=== PATIENT | female | born 1935 | race Caucasian/White ===

== ENCOUNTER 2020-01-31 09:06 | Outpatient (CLI) | payer BC ==
[~2020-01-31] VITALS: Ht 149.9 cm; Wt 45.4 kg
[2020-01-31] MEDS ORDERED: cefOXitin SODIUM 2 GM in D5W 100 ML IV ONE (09:30)
[2020-01-31] MEDS ORDERED: ALVIMOPAN 12 MG CAPSULE PO ONE (09:33)
[2020-01-31 09:49] VITALS: BP_SYST 129
[2020-01-31] MEDS ORDERED: LOSA100T3 PO (10:18)
== END 2020-01-31 17:36 | disposition home or self-care (01) ==
LOC: SLB 09:06 → UNDOADMIN 09:06 → SMU 09:06 → UNDODISIN 10:50 → EDSTATUS 10:50 → SLB 17:36
DX: C18.9 Malignant neoplasm of colon, unspecified (principal)
CPT/HCPCS: 36415; 86886; 86900; 86901; 86920; 87081 ×2; J0694; J7060; J7120

== ENCOUNTER 2020-02-07 05:50 | Inpatient (IN) | payer BC ==
[~2020-02-07] VITALS: Ht 149.9 cm; Wt 44.9 kg
[~2020-02-07 05:50] MED LIST: LOSA100T3 PO
[2020-02-07] MEDS ORDERED: ALVIMOPAN 12 MG CAPSULE PO ONE (06:23)
[2020-02-07 06:32] LABS: BASOPHILS # (AUTO) 0.1 K/uL (0.0-0.2); EOSINOPHILS # (AUTO) 0.1 K/uL (0.0-0.4); EOSINOPHILS % (AUTO) 1.5 % (0.0-4.0); HEMATOCRIT 32.4 % (36-48); HEMOGLOBIN 10.5 g/dL (12.0-16.0); LYMPHOCYTES # (AUTO) 2.1 K/uL (1.0-5.5); LYMPHOCYTES % (AUTO) 22.2 % (20.5-51.5); MEAN CORPUSCULAR HEMOGLOBIN 26 pg (27-31); MEAN CORPUSCULAR HGB CONC 32 % (32-36); MEAN CORPUSCULAR VOLUME 82 fL (79.0-98.0); MONOCYTES # (AUTO) 0.6 K/uL (0.0-1.0); MONOCYTES % (AUTO) 6.1 % (1.7-9.3); NEUTROPHILS # (AUTO) 6.4 K/uL (1.8-7.7); NEUTROPHILS % (AUTO) 69.2 % (40.0-70.0); PLATELET COUNT (AUTO) 327 K/uL (130-430); RED BLOOD CELL COUNT(AUTO) 3.97 MIL/uL (4.2-6.2); RED CELL DISTRIBUTION WIDTH 20.7 % (9.0-15.0); WHITE BLOOD COUNT (AUTO) 9.3 K/uL (4.8-10.8)
[2020-02-07 06:40] LABS: ANION GAP 10 (5-15); CALCIUM 8.3 mg/dL (8.4-11.0); CHLORIDE 104 mmol/L (98-107); GLUCOSE 112 mg/dL (70-99); POTASSIUM 3.9 mmol/L (3.5-5.1); SODIUM SERUM 140 mmol/L (136-145); UREA NITROGEN, BLOOD 15 mg/dL (8-21)
[2020-02-07] MEDS ORDERED: CEFOXITIN 2 GM/DEXTROSE,ISO 50 ML (PREMIX) IV ONE (07:00)
[2020-02-07] MEDS ORDERED: PROPOFOL 200MG/ 20ML VIAL (DIPRIVAN) IV ONE (07:29)
[2020-02-07] MEDS ORDERED: MIDAZOLAM HCL 5 MG/5 ML VIAL IVP ONE (07:29)
[2020-02-07] MEDS ORDERED: NS 1000 ML IV.SOLN IV ONE (07:29)
[2020-02-07] MEDS ORDERED: SEVOFLURANE 15 MIN GAS INH ONE (07:29)
[2020-02-07] MEDS ORDERED: BUPIVACAINE LIPOSOME/PF 266 MG/20 ML VIAL INFIL ONE ×2 (07:29→07:33)
[2020-02-07] MEDS ORDERED: GLYCOPYRROLATE 0.2 MG/ML VIAL IJ ONE (07:29)
[2020-02-07] MEDS ORDERED: PHENYLEPHRINE HCL 10 MG/ML VIAL (NEOSYNEPHRINE) IV ONE (07:29)
[2020-02-07] MEDS ORDERED: fentaNYL CITRATE 250 MCG/5 ML AMP IV ONE (07:29)
[2020-02-07] MEDS ORDERED: LR 500 ML IV.SOLN IV ONE (07:29)
[2020-02-07] MEDS ORDERED: ONDANSETRON HCL 4 MG/2 ML VIAL IVP ONE (07:29)
[2020-02-07] MEDS ORDERED: ROCURONIUM BROMIDE 10 MG/ML (ZEMURON) IV ONE (07:29)
[2020-02-07] MEDS ORDERED: METOPROLOL TARTRATE 5 MG/5 ML VIAL IVP ONE (07:29)
[2020-02-07] MEDS ORDERED: NS IRRIG SOLN 1000 ML IR ONE (07:29)
[2020-02-07] MEDS ORDERED: BUPIVACAINE /PF 0.25% 30 ML VIAL INJ ONE (07:29)
[2020-02-07] MEDS ORDERED: LR 1,000 ML IV ONE (08:21)
[2020-02-07] MEDS ORDERED: HYDROmorphone 1 MG INJ. 1 MG/ML AMPUL IVP PRN (08:30)
[2020-02-07] MEDS ORDERED: ONDANSETRON HCL 4 MG/2 ML VIAL IVP PRN (08:30)
[2020-02-07] MEDS ORDERED: MORPHINE 4 MG/ML INJ. SYRINGE IVP PRN (08:30)
[2020-02-07] MEDS ORDERED: MIDAZOLAM HCL 5 MG/5 ML VIAL IVP PRN (08:30)
[2020-02-07] MEDS ORDERED: HYDROcodone/ACETAMIN 5-325 MG TAB (NORCO/ VICODIN) PO PRN (10:00)
[2020-02-07] MEDS ORDERED: ACETAMINOPHEN 325 MG TABLET PO PRN (10:00)
[2020-02-07 10:31] LABS: HEMATOCRIT 30.3 % (36-48); HEMOGLOBIN 9.4 g/dL (12.0-16.0)
[2020-02-07 10:45] LABS: ANION GAP 9 (5-15); CALCIUM 8.2 mg/dL (8.4-11.0); CHLORIDE 106 mmol/L (98-107); CREATININE 0.66 mg/dL (0.55-1.30); GLUCOSE 164 mg/dL (70-99); POTASSIUM 4.1 mmol/L (3.5-5.1); SODIUM SERUM 139 mmol/L (136-145); UREA NITROGEN, BLOOD 14 mg/dL (8-21)
[2020-02-07] MEDS: HYDROmorphone 1 MG INJ. 1 MG/ML AMPUL IVP PRN ×2 (11:00→11:15)
[2020-02-07] MEDS ORDERED: HYDROmorphone 1 MG INJ. 1 MG/ML AMPUL ONE (11:08)
[2020-02-07 11:25] VITALS: BP_SYST 163
[2020-02-07] MEDS ORDERED: *TPN PER PHARMACY XX PRN (12:15)
[2020-02-07 16:00] VITALS: BP_SYST 153
[2020-02-07] MEDS: D5/0.45 NS 1,000 ML IV SCH ×2 (19:09→19:47)
[2020-02-07 20:09] VITALS: BP_SYST 141
[2020-02-07] MEDS: TPN PERIPHERAL IV SCH ×9 (21:00)
[2020-02-07] MEDS: FAT EMULSIONS 250 ML IV SCH (21:00)
[2020-02-07] MEDS: ALVIMOPAN 12 MG CAPSULE PO SCH (21:00)
[2020-02-07] MEDS: SODIUM CHLORIDE IV SCH ×9 (21:00)
[2020-02-07] MEDS: [UNRECOGNIZED DRUG - OTHER] IV SCH ×9 (21:00)
[2020-02-07] MEDS ORDERED: D5/0.45 NS 1,000 ML IV SCH (21:00)
[2020-02-07] MEDS: SODIUM ACETATE IV SCH ×9 (21:00)
[2020-02-07] MEDS: cefOXitin SODIUM 2 GM in D5W 100 ML IV SCH (23:07)
[2020-02-07] MEDS: FAMOTIDINE PF 20 MG/2 ML VIAL IVP SCH (23:08)
[2020-02-08 01:02] VITALS: BP_SYST 162
[2020-02-08] MEDS: HYDROmorphone 1 MG INJ. 1 MG/ML AMPUL IVP PRN ×3 (05:22→16:33)
[2020-02-08 06:27] LABS: BASOPHILS % (AUTO) 0.2 % (0.0-2.0); EOSINOPHILS % (AUTO) 0.1 % (0.0-4.0); HEMATOCRIT 30.8 % (36-48); HEMOGLOBIN 9.7 g/dL (12.0-16.0); LYMPHOCYTES # (AUTO) 2.2 K/uL (1.0-5.5); LYMPHOCYTES % (AUTO) 14.5 % (20.5-51.5); MEAN CORPUSCULAR HEMOGLOBIN 26 pg (27-31); MEAN CORPUSCULAR HGB CONC 32 % (32-36); MEAN CORPUSCULAR VOLUME 82 fL (79.0-98.0); MONOCYTES % (AUTO) 6.5 % (1.7-9.3); NEUTROPHILS % (AUTO) 78.7 % (40.0-70.0); PLATELET COUNT (AUTO) 277 K/uL (130-430); RED BLOOD CELL COUNT(AUTO) 3.74 MIL/uL (4.2-6.2); RED CELL DISTRIBUTION WIDTH 20.1 % (9.0-15.0); WHITE BLOOD COUNT (AUTO) 15.3 K/uL (4.8-10.8)
[2020-02-08 06:31] LABS: ANION GAP 7 (5-15); CALCIUM 7.9 mg/dL (8.4-11.0); CHLORIDE 98 mmol/L (98-107); CREATININE 0.57 mg/dL (0.55-1.30); GLUCOSE 125 mg/dL (70-99); POTASSIUM 4.3 mmol/L (3.5-5.1); SODIUM SERUM 129 mmol/L (136-145); UREA NITROGEN, BLOOD 10 mg/dL (8-21)
[2020-02-08 06:32] LABS: ALANINE AMINOTRANSFERASE 17 U/L (12-78); ALBUMIN 2.2 g/dL (3.4-4.8); ASPARTATE AMINOTRANSFERASE 15 U/L (10-37); PHOSPHORUS 3.2 mg/dL (2.7-4.5); TOTAL BILIRUBIN 0.5 mg/dL (0.0-1.0)
[2020-02-08 08:09] VITALS: BP_SYST 163
[2020-02-08] MEDS: cefOXitin SODIUM 2 GM in D5W 100 ML IV SCH (09:26)
[2020-02-08] MEDS: ALVIMOPAN 12 MG CAPSULE PO SCH ×2 (09:27→21:14)
[2020-02-08] MEDS: FAMOTIDINE PF 20 MG/2 ML VIAL IVP SCH ×2 (09:27→21:14)
[2020-02-08] MEDS: ENOXAPARIN SODIUM 30 MG/0.3 ML SYRINGE SUBCUT SCH (09:33)
[2020-02-08] MEDS ORDERED: D5NS 1,000 ML IV SCH ×2 (09:45→16:45)
[2020-02-08] MEDS: FAT EMULSIONS 250 ML IV SCH (10:01)
[2020-02-08] MEDS: [UNRECOGNIZED DRUG - OTHER] IV SCH ×9 (10:03)
[2020-02-08] MEDS: SODIUM ACETATE IV SCH ×9 (10:03)
[2020-02-08] MEDS: TPN PERIPHERAL IV SCH ×9 (10:03)
[2020-02-08] MEDS: SODIUM CHLORIDE IV SCH ×9 (10:03)
[2020-02-08 12:30] VITALS: BP_SYST 161
[2020-02-08] MEDS: ONDANSETRON HCL 4 MG/2 ML VIAL IVP PRN (16:33)
[2020-02-08 16:46] VITALS: BP_SYST 153
[2020-02-08] MEDS: D5NS 1,000 ML IV SCH (20:11)
[2020-02-08 20:15] VITALS: BP_SYST 149
[2020-02-08] MEDS ORDERED: POTASSIUM CHLORIDE IV SCH ×9 (21:00)
[2020-02-08] MEDS ORDERED: K PHOS IV SCH ×9 (21:00)
[2020-02-08] MEDS ORDERED: TPN CENTRAL IV SCH ×9 (21:00)
[2020-02-08] MEDS ORDERED: SODIUM CHLORIDE IV SCH ×9 (21:00)
[2020-02-08] MEDS ORDERED: [UNRECOGNIZED DRUG - OTHER] IV SCH ×9 (21:00)
[2020-02-09 01:49] VITALS: BP_SYST 158
[2020-02-09] MEDS: HYDROmorphone 1 MG INJ. 1 MG/ML AMPUL IVP PRN ×2 (05:24→11:52)
[2020-02-09 06:17] LABS: BASOPHILS % (AUTO) 0.2 % (0.0-2.0); EOSINOPHILS # (AUTO) 0.1 K/uL (0.0-0.4); EOSINOPHILS % (AUTO) 0.5 % (0.0-4.0); HEMATOCRIT 28.2 % (36-48); HEMOGLOBIN 9.3 g/dL (12.0-16.0); LYMPHOCYTES # (AUTO) 1.5 K/uL (1.0-5.5); LYMPHOCYTES % (AUTO) 13.9 % (20.5-51.5); MEAN CORPUSCULAR HEMOGLOBIN 27 pg (27-31); MEAN CORPUSCULAR HGB CONC 33 % (32-36); MEAN CORPUSCULAR VOLUME 82 fL (79.0-98.0); MONOCYTES # (AUTO) 0.7 K/uL (0.0-1.0); MONOCYTES % (AUTO) 6.1 % (1.7-9.3); NEUTROPHILS # (AUTO) 8.6 K/uL (1.8-7.7); NEUTROPHILS % (AUTO) 79.3 % (40.0-70.0); PLATELET COUNT (AUTO) 254 K/uL (130-430); RED BLOOD CELL COUNT(AUTO) 3.42 MIL/uL (4.2-6.2); RED CELL DISTRIBUTION WIDTH 20.3 % (9.0-15.0); WHITE BLOOD COUNT (AUTO) 10.8 K/uL (4.8-10.8)
[2020-02-09 06:30] LABS: ALANINE AMINOTRANSFERASE 15 U/L (12-78); ANION GAP 6 (5-15); ASPARTATE AMINOTRANSFERASE 13 U/L (10-37); CALCIUM 7.8 mg/dL (8.4-11.0); CHLORIDE 98 mmol/L (98-107); GLUCOSE 147 mg/dL (70-99); PHOSPHORUS 3.3 mg/dL (2.7-4.5); POTASSIUM 3.9 mmol/L (3.5-5.1); SODIUM SERUM 128 mmol/L (136-145); TOTAL BILIRUBIN 0.6 mg/dL (0.0-1.0); UREA NITROGEN, BLOOD 10 mg/dL (8-21)
[2020-02-09 08:00] VITALS: BP_SYST 154
[2020-02-09] MEDS: FAMOTIDINE PF 20 MG/2 ML VIAL IVP SCH ×2 (08:35→21:35)
[2020-02-09] MEDS: ALVIMOPAN 12 MG CAPSULE PO SCH ×2 (08:35→21:35)
[2020-02-09] MEDS: ENOXAPARIN SODIUM 30 MG/0.3 ML SYRINGE SUBCUT SCH (08:38)
[2020-02-09 12:26] VITALS: BP_SYST 144
[2020-02-09] MEDS: D5NS 1,000 ML IV SCH (14:51)
[2020-02-09 16:13] VITALS: BP_SYST 142
[2020-02-09 16:34] LABS: BASOPHILS % (AUTO) 0.3 % (0.0-2.0); EOSINOPHILS # (AUTO) 0.1 K/uL (0.0-0.4); EOSINOPHILS % (AUTO) 0.8 % (0.0-4.0); HEMATOCRIT 28.3 % (36-48); HEMOGLOBIN 9.4 g/dL (12.0-16.0); LYMPHOCYTES # (AUTO) 1.6 K/uL (1.0-5.5); LYMPHOCYTES % (AUTO) 14.4 % (20.5-51.5); MEAN CORPUSCULAR HEMOGLOBIN 27 pg (27-31); MEAN CORPUSCULAR HGB CONC 33 % (32-36); MEAN CORPUSCULAR VOLUME 82 fL (79.0-98.0); MONOCYTES # (AUTO) 0.6 K/uL (0.0-1.0); MONOCYTES % (AUTO) 5.2 % (1.7-9.3); NEUTROPHILS % (AUTO) 79.3 % (40.0-70.0); PLATELET COUNT (AUTO) 252 K/uL (130-430); RED BLOOD CELL COUNT(AUTO) 3.47 MIL/uL (4.2-6.2); RED CELL DISTRIBUTION WIDTH 20.1 % (9.0-15.0); WHITE BLOOD COUNT (AUTO) 11.3 K/uL (4.8-10.8)
[2020-02-09] MEDS: METOCLOPRAMIDE HCL 10 MG/2 ML VIAL IVP SCH ×2 (17:37→23:34)
[2020-02-09] MEDS: HYDROcodone/ACETAMIN 5-325 MG TAB (NORCO/ VICODIN) PO PRN (18:45)
[2020-02-09 20:00] VITALS: BP_SYST 134
[2020-02-09] MEDS ORDERED: TPN CENTRAL IV SCH ×9 (21:00)
[2020-02-09] MEDS ORDERED: POTASSIUM CHLORIDE IV SCH ×9 (21:00)
[2020-02-09] MEDS ORDERED: SODIUM CHLORIDE IV SCH ×9 (21:00)
[2020-02-09] MEDS ORDERED: [UNRECOGNIZED DRUG - OTHER] IV SCH ×9 (21:00)
[2020-02-09] MEDS: FAT EMULSIONS 250 ML IV SCH (21:33)
[2020-02-10 00:53] VITALS: BP_SYST 122
[2020-02-10] MEDS: ONDANSETRON HCL 4 MG/2 ML VIAL IVP PRN (03:24)
[2020-02-10] MEDS: METOCLOPRAMIDE HCL 10 MG/2 ML VIAL IVP SCH ×3 (05:43→18:13)
[2020-02-10 05:52] LABS: ALANINE AMINOTRANSFERASE 14 U/L (12-78); ALBUMIN 2.1 g/dL (3.4-4.8); ANION GAP 9 (5-15); ASPARTATE AMINOTRANSFERASE 13 U/L (10-37); CALCIUM 7.9 mg/dL (8.4-11.0); CHLORIDE 103 mmol/L (98-107); CREATININE 0.44 mg/dL (0.55-1.30); GLUCOSE 168 mg/dL (70-99); PHOSPHORUS 3.7 mg/dL (2.7-4.5); POTASSIUM 3.7 mmol/L (3.5-5.1); SODIUM SERUM 133 mmol/L (136-145); TOTAL BILIRUBIN 1.3 mg/dL (0.0-1.0); UREA NITROGEN, BLOOD 10 mg/dL (8-21)
[2020-02-10 07:06] LABS: BASOPHILS % (AUTO) 0.2 % (0.0-2.0); EOSINOPHILS # (AUTO) 0.1 K/uL (0.0-0.4); EOSINOPHILS % (AUTO) 0.8 % (0.0-4.0); HEMATOCRIT 29.2 % (36-48); HEMOGLOBIN 9.3 g/dL (12.0-16.0); LYMPHOCYTES # (AUTO) 1.2 K/uL (1.0-5.5); LYMPHOCYTES % (AUTO) 10.8 % (20.5-51.5); MEAN CORPUSCULAR HEMOGLOBIN 27 pg (27-31); MEAN CORPUSCULAR HGB CONC 32 % (32-36); MONOCYTES # (AUTO) 0.6 K/uL (0.0-1.0); MONOCYTES % (AUTO) 5.5 % (1.7-9.3); NEUTROPHILS # (AUTO) 9.2 K/uL (1.8-7.7); NEUTROPHILS % (AUTO) 82.7 % (40.0-70.0); PLATELET COUNT (AUTO) 256 K/uL (130-430); RED BLOOD CELL COUNT(AUTO) 3.48 MIL/uL (4.2-6.2); RED CELL DISTRIBUTION WIDTH 19.7 % (9.0-15.0); WHITE BLOOD COUNT (AUTO) 11.1 K/uL (4.8-10.8)
[2020-02-10 07:23] LABS: MEAN CORPUSCULAR VOLUME 83 fL (79.0-98.0)
[2020-02-10 08:15] VITALS: BP_SYST 150
[2020-02-10] MEDS: FAMOTIDINE PF 20 MG/2 ML VIAL IVP SCH ×2 (09:12→20:51)
[2020-02-10] MEDS: ENOXAPARIN SODIUM 30 MG/0.3 ML SYRINGE SUBCUT SCH (09:17)
[2020-02-10] MEDS: ALVIMOPAN 12 MG CAPSULE PO SCH ×2 (09:18→20:50)
[2020-02-10] MEDS: D5NS 1,000 ML IV SCH (09:19)
[2020-02-10] MEDS ORDERED: [UNRECOGNIZED DRUG - OTHER] IV SCH ×20 (11:15→21:00)
[2020-02-10] MEDS ORDERED: SODIUM CHLORIDE IV SCH ×20 (11:15→21:00)
[2020-02-10] MEDS ORDERED: TPN CENTRAL IV SCH ×20 (11:15→21:00)
[2020-02-10] MEDS ORDERED: SODIUM ACETATE IV SCH ×20 (11:15→21:00)
[2020-02-10] MEDS: HYDROmorphone 1 MG INJ. 1 MG/ML AMPUL IVP PRN (12:11)
[2020-02-10 12:23] VITALS: BP_SYST 139
[2020-02-10 16:25] VITALS: BP_SYST 158
[2020-02-10 19:56] LABS: BILIRUBIN,URINE 2+ (NEGATIVE); BLOOD, URINE 3+ (NEGATIVE); CLARITY/URINE CLOUDY (CLEAR); GLUCOSE,URINE NEGATIVE (NEGATIVE); KETONES,URINE NEGATIVE (NEGATIVE); LEUKOCYTE ESTERASE ,URINE 2+ (NEGATIVE); NITRITE, URINE POSITIVE (NEGATIVE); PROTEIN URINE TRACE (NEGATIVE); UROBILINOGEN,URINE 0.2 (0.2-1.0)
[2020-02-10 20:33] LABS: COLOR,URINE AMBER (YELLOW)
[2020-02-10 20:40] LABS: BACTERIA,URINE MODERATE /HPF (None Seen); RBC,URINE >100 /HPF (0-3); WBC,URINE 50-80 /HPF (0-3)
[2020-02-10 20:43] LABS: MUCUS,URINE None Seen /LPF (None Seen); YEAST,URINE Few /HPF (None Seen)
[2020-02-10 20:45] VITALS: BP_SYST 127
[2020-02-10] MEDS: CEFEPIME 1 GM in D5W 50 ML IV SCH (20:52)
[2020-02-10] MEDS: FAT EMULSIONS 250 ML IV SCH (21:01)
[2020-02-11] MEDS: METOCLOPRAMIDE HCL 10 MG/2 ML VIAL IVP SCH ×5 (00:09→23:10)
[2020-02-11 01:12] VITALS: BP_SYST 153
[2020-02-11 06:33] LABS: ANION GAP 6 (5-15); CALCIUM 8.3 mg/dL (8.4-11.0); CHLORIDE 103 mmol/L (98-107); CREATININE 0.46 mg/dL (0.55-1.30); GLUCOSE 161 mg/dL (70-99); PHOSPHORUS 2.9 mg/dL (2.7-4.5); POTASSIUM 3.6 mmol/L (3.5-5.1); SODIUM SERUM 133 mmol/L (136-145); UREA NITROGEN, BLOOD 10 mg/dL (8-21)
[2020-02-11 06:48] LABS: BASOPHILS % (AUTO) 0.3 % (0.0-2.0); EOSINOPHILS # (AUTO) 0.2 K/uL (0.0-0.4); EOSINOPHILS % (AUTO) 1.9 % (0.0-4.0); HEMATOCRIT 27.8 % (36-48); LYMPHOCYTES # (AUTO) 1.2 K/uL (1.0-5.5); LYMPHOCYTES % (AUTO) 11.6 % (20.5-51.5); MEAN CORPUSCULAR HEMOGLOBIN 27 pg (27-31); MEAN CORPUSCULAR HGB CONC 32 % (32-36); MEAN CORPUSCULAR VOLUME 83 fL (79.0-98.0); MONOCYTES # (AUTO) 0.7 K/uL (0.0-1.0); MONOCYTES % (AUTO) 6.3 % (1.7-9.3); NEUTROPHILS # (AUTO) 8.4 K/uL (1.8-7.7); NEUTROPHILS % (AUTO) 79.9 % (40.0-70.0); PLATELET COUNT (AUTO) 304 K/uL (130-430); RED BLOOD CELL COUNT(AUTO) 3.34 MIL/uL (4.2-6.2); RED CELL DISTRIBUTION WIDTH 19.7 % (9.0-15.0); WHITE BLOOD COUNT (AUTO) 10.5 K/uL (4.8-10.8)
[2020-02-11] MEDS: D5NS 1,000 ML IV SCH (06:49)
[2020-02-11 06:50] LABS: TOTAL BILIRUBIN 1.1 mg/dL (0.0-1.0)
[2020-02-11] MEDS: HYDROmorphone 1 MG INJ. 1 MG/ML AMPUL IVP PRN (06:52)
[2020-02-11 07:44] LABS: ALANINE AMINOTRANSFERASE 23 U/L (12-78); ASPARTATE AMINOTRANSFERASE 32 U/L (10-37)
[2020-02-11 08:30] VITALS: BP_SYST 144
[2020-02-11] MEDS: ENOXAPARIN SODIUM 30 MG/0.3 ML SYRINGE SUBCUT SCH (08:43)
[2020-02-11] MEDS: ALVIMOPAN 12 MG CAPSULE PO SCH ×2 (08:43→22:53)
[2020-02-11] MEDS: FAMOTIDINE PF 20 MG/2 ML VIAL IVP SCH ×2 (08:44→22:54)
[2020-02-11] MEDS: CEFEPIME 1 GM in D5W 50 ML IV SCH ×2 (08:44→22:54)
[2020-02-11] MEDS: INSULIN REGULAR, HUMAN 100 UNITS/ML, 10 ML VIAL (humuLIN R) SUBCUT PRN ×3 (11:39→23:08)
[2020-02-11 12:20] VITALS: BP_SYST 148
[2020-02-11] MEDS: FLUCONAZOLE 100 mg/ NS 50 ML IV SCH (14:11)
[2020-02-11 16:41] VITALS: BP_SYST 139
[2020-02-11] MEDS: HYDROcodone/ACETAMIN 5-325 MG TAB (NORCO/ VICODIN) PO PRN (16:48)
[2020-02-11 19:00] VITALS: BP_SYST 154
[2020-02-11] MEDS ORDERED: [UNRECOGNIZED DRUG - OTHER] IV SCH ×10 (21:00)
[2020-02-11] MEDS ORDERED: SODIUM ACETATE IV SCH ×10 (21:00)
[2020-02-11] MEDS ORDERED: SODIUM CHLORIDE IV SCH ×10 (21:00)
[2020-02-11] MEDS ORDERED: TPN CENTRAL IV SCH ×10 (21:00)
[2020-02-11] MEDS: FAT EMULSIONS 250 ML IV SCH (23:04)
[2020-02-12] VITALS (7 sets, daily range): BP systolic 114–172
[2020-02-12] MEDS: HYDROmorphone 1 MG INJ. 1 MG/ML AMPUL IVP PRN ×2 (03:32→08:07)
[2020-02-12] MEDS: ONDANSETRON HCL 4 MG/2 ML VIAL IVP PRN ×2 (03:32→19:07)
[2020-02-12] MEDS: D5NS 1,000 ML IV SCH ×2 (03:33→23:04)
[2020-02-12 05:50] LABS: BASOPHILS % (AUTO) 0.3 % (0.0-2.0); EOSINOPHILS # (AUTO) 0.2 K/uL (0.0-0.4); EOSINOPHILS % (AUTO) 1.5 % (0.0-4.0); HEMATOCRIT 31.1 % (36-48); LYMPHOCYTES # (AUTO) 1.1 K/uL (1.0-5.5); LYMPHOCYTES % (AUTO) 10.6 % (20.5-51.5); MEAN CORPUSCULAR HEMOGLOBIN 27 pg (27-31); MEAN CORPUSCULAR HGB CONC 32 % (32-36); MEAN CORPUSCULAR VOLUME 83 fL (79.0-98.0); MONOCYTES # (AUTO) 0.6 K/uL (0.0-1.0); MONOCYTES % (AUTO) 5.6 % (1.7-9.3); NEUTROPHILS # (AUTO) 8.8 K/uL (1.8-7.7); PLATELET COUNT (AUTO) 354 K/uL (130-430); RED BLOOD CELL COUNT(AUTO) 3.75 MIL/uL (4.2-6.2); RED CELL DISTRIBUTION WIDTH 20.2 % (9.0-15.0); WHITE BLOOD COUNT (AUTO) 10.8 K/uL (4.8-10.8)
[2020-02-12] MEDS: METOCLOPRAMIDE HCL 10 MG/2 ML VIAL IVP SCH ×4 (05:52→23:03)
[2020-02-12] MEDS: INSULIN REGULAR, HUMAN 100 UNITS/ML, 10 ML VIAL (humuLIN R) SUBCUT PRN ×4 (05:59→22:42)
[2020-02-12 06:09] LABS: ALANINE AMINOTRANSFERASE 19 U/L (12-78); ALBUMIN 1.7 g/dL (3.4-4.8); ANION GAP 8 (5-15); ASPARTATE AMINOTRANSFERASE 17 U/L (10-37); CALCIUM 7.6 mg/dL (8.4-11.0); CHLORIDE 104 mmol/L (98-107); CREATININE 0.41 mg/dL (0.55-1.30); GLUCOSE 189 mg/dL (70-99); PHOSPHORUS 3.3 mg/dL (2.7-4.5); POTASSIUM 3.8 mmol/L (3.5-5.1); SODIUM SERUM 136 mmol/L (136-145); TOTAL BILIRUBIN 0.7 mg/dL (0.0-1.0); UREA NITROGEN, BLOOD 10 mg/dL (8-21)
[2020-02-12] MEDS: ALVIMOPAN 12 MG CAPSULE PO SCH ×2 (08:06→21:59)
[2020-02-12] MEDS: FAMOTIDINE PF 20 MG/2 ML VIAL IVP SCH ×2 (08:07→21:59)
[2020-02-12] MEDS: CEFEPIME 1 GM in D5W 50 ML IV SCH ×2 (08:08→21:58)
[2020-02-12] MEDS: ENOXAPARIN SODIUM 30 MG/0.3 ML SYRINGE SUBCUT SCH (08:10)
[2020-02-12] MEDS: FLUCONAZOLE 100 mg/ NS 50 ML IV SCH (12:15)
[2020-02-12] MEDS ORDERED: [UNRECOGNIZED DRUG - OTHER] IV SCH ×10 (21:00)
[2020-02-12] MEDS ORDERED: SODIUM CHLORIDE IV SCH ×10 (21:00)
[2020-02-12] MEDS ORDERED: SODIUM ACETATE IV SCH ×10 (21:00)
[2020-02-12] MEDS ORDERED: TPN CENTRAL IV SCH ×10 (21:00)
[2020-02-12] MEDS: FAT EMULSIONS 250 ML IV SCH (21:58)
[2020-02-13 00:10] VITALS: BP_SYST 158
[2020-02-13] MEDS: HYDROmorphone 1 MG INJ. 1 MG/ML AMPUL IVP PRN ×2 (03:27→18:23)
[2020-02-13 06:01] LABS: ALANINE AMINOTRANSFERASE 30 U/L (12-78); ALBUMIN 1.7 g/dL (3.4-4.8); ANION GAP 8 (5-15); CALCIUM 7.9 mg/dL (8.4-11.0); CHLORIDE 100 mmol/L (98-107); CREATININE 0.37 mg/dL (0.55-1.30); GLUCOSE 161 mg/dL (70-99); PHOSPHORUS 3.1 mg/dL (2.7-4.5); POTASSIUM 3.8 mmol/L (3.5-5.1); SODIUM SERUM 131 mmol/L (136-145); TOTAL BILIRUBIN 0.4 mg/dL (0.0-1.0); TRIGLYCERIDES 87 mg/dL (30-150); UREA NITROGEN, BLOOD 9 mg/dL (8-21)
[2020-02-13] MEDS: METOCLOPRAMIDE HCL 10 MG/2 ML VIAL IVP SCH ×3 (06:09→17:38)
[2020-02-13] MEDS: INSULIN REGULAR, HUMAN 100 UNITS/ML, 10 ML VIAL (humuLIN R) SUBCUT PRN ×3 (06:14→21:39)
[2020-02-13 07:19] LABS: ASPARTATE AMINOTRANSFERASE 28 U/L (10-37)
[2020-02-13 07:45] VITALS: BP_SYST 154
[2020-02-13] MEDS: ALVIMOPAN 12 MG CAPSULE PO SCH ×2 (09:51→21:36)
[2020-02-13] MEDS: CEFEPIME 1 GM in D5W 50 ML IV SCH ×2 (09:51→21:02)
[2020-02-13] MEDS: FAMOTIDINE PF 20 MG/2 ML VIAL IVP SCH ×2 (09:52→21:36)
[2020-02-13] MEDS: ENOXAPARIN SODIUM 30 MG/0.3 ML SYRINGE SUBCUT SCH (09:54)
[2020-02-13] MEDS: FLUCONAZOLE 100 mg/ NS 50 ML IV SCH (12:06)
[2020-02-13 12:28] VITALS: BP_SYST 156
[2020-02-13 16:02] VITALS: BP_SYST 158
[2020-02-13] MEDS: SODIUM ACETATE IV SCH ×10 (21:06)
[2020-02-13] MEDS: TPN CENTRAL IV SCH ×10 (21:06)
[2020-02-13] MEDS: SODIUM CHLORIDE IV SCH ×10 (21:06)
[2020-02-13] MEDS: [UNRECOGNIZED DRUG - OTHER] IV SCH ×10 (21:06)
[2020-02-13] MEDS: FAT EMULSIONS 250 ML IV SCH (21:07)
[2020-02-14] MEDS: D5NS 1,000 ML IV SCH (00:18)
[2020-02-14] MEDS: METOCLOPRAMIDE HCL 10 MG/2 ML VIAL IVP SCH ×4 (00:18→17:33)
[2020-02-14 00:28] VITALS: BP_SYST 154
[2020-02-14] MEDS: HYDROmorphone 1 MG INJ. 1 MG/ML AMPUL IVP PRN (02:16)
[2020-02-14 05:54] LABS: ALANINE AMINOTRANSFERASE 34 U/L (12-78); ALBUMIN 1.8 g/dL (3.4-4.8); ANION GAP 8 (5-15); ASPARTATE AMINOTRANSFERASE 35 U/L (10-37); CALCIUM 7.6 mg/dL (8.4-11.0); CHLORIDE 100 mmol/L (98-107); CREATININE 0.42 mg/dL (0.55-1.30); GLUCOSE 139 mg/dL (70-99); PHOSPHORUS 3.6 mg/dL (2.7-4.5); SODIUM SERUM 133 mmol/L (136-145); TOTAL BILIRUBIN 0.5 mg/dL (0.0-1.0); UREA NITROGEN, BLOOD 10 mg/dL (8-21)
[2020-02-14] MEDS: INSULIN REGULAR, HUMAN 100 UNITS/ML, 10 ML VIAL (humuLIN R) SUBCUT PRN (06:06)
[2020-02-14 06:13] LABS: BASOPHILS # (AUTO) 0.1 K/uL (0.0-0.2); BASOPHILS % (AUTO) 0.8 % (0.0-2.0); EOSINOPHILS # (AUTO) 0.4 K/uL (0.0-0.4); EOSINOPHILS % (AUTO) 4.7 % (0.0-4.0); HEMATOCRIT 28.8 % (36-48); HEMOGLOBIN 9.5 g/dL (12.0-16.0); LYMPHOCYTES # (AUTO) 1.9 K/uL (1.0-5.5); LYMPHOCYTES % (AUTO) 21.7 % (20.5-51.5); MEAN CORPUSCULAR HEMOGLOBIN 27 pg (27-31); MEAN CORPUSCULAR HGB CONC 33 % (32-36); MEAN CORPUSCULAR VOLUME 83 fL (79.0-98.0); MONOCYTES # (AUTO) 0.7 K/uL (0.0-1.0); MONOCYTES % (AUTO) 7.7 % (1.7-9.3); NEUTROPHILS # (AUTO) 5.6 K/uL (1.8-7.7); NEUTROPHILS % (AUTO) 65.1 % (40.0-70.0); PLATELET COUNT (AUTO) 390 K/uL (130-430); RED BLOOD CELL COUNT(AUTO) 3.48 MIL/uL (4.2-6.2); RED CELL DISTRIBUTION WIDTH 19.8 % (9.0-15.0); WHITE BLOOD COUNT (AUTO) 8.6 K/uL (4.8-10.8)
[2020-02-14 07:55] VITALS: BP_SYST 157
[2020-02-14] MEDS: FAMOTIDINE PF 20 MG/2 ML VIAL IVP SCH ×2 (09:20→20:37)
[2020-02-14] MEDS: CEFEPIME 1 GM in D5W 50 ML IV SCH ×2 (09:20→20:48)
[2020-02-14] MEDS: ONDANSETRON HCL 4 MG/2 ML VIAL IVP PRN (09:20)
[2020-02-14] MEDS: ALVIMOPAN 12 MG CAPSULE PO SCH (09:21)
[2020-02-14] MEDS: ENOXAPARIN SODIUM 30 MG/0.3 ML SYRINGE SUBCUT SCH (09:26)
[2020-02-14] MEDS ORDERED: LEVO500T89 PO (12:31)
[2020-02-14 12:35] VITALS: BP_SYST 146
[2020-02-14] MEDS: FLUCONAZOLE 100 mg/ NS 50 ML IV SCH (13:13)
[2020-02-14 16:25] VITALS: BP_SYST 166
[2020-02-14 20:02] VITALS: BP_SYST 160
[2020-02-14] MEDS: TPN CENTRAL IV SCH ×10 (21:00)
[2020-02-14] MEDS: SODIUM CHLORIDE IV SCH ×10 (21:00)
[2020-02-14] MEDS: [UNRECOGNIZED DRUG - OTHER] IV SCH ×10 (21:00)
[2020-02-14] MEDS: FAT EMULSIONS 250 ML IV SCH (21:00)
[2020-02-14] MEDS: SODIUM ACETATE IV SCH ×10 (21:00)
[2020-02-14] MEDS: HYDROcodone/ACETAMIN 5-325 MG TAB (NORCO/ VICODIN) PO PRN (21:02)
[2020-02-14 21:45] VITALS: BP_SYST 160
== END 2020-02-14 23:10 | disposition home or self-care (01) | DRG 329 ==
LOC: SDS 05:50 → SMU 05:50
PROVIDERS: ADMIT Colon & Rectal Surgery; ATTEND Colon & Rectal Surgery
PROC: 0DB80ZZ Excision of Small Intestine, Open Approach (ICD-10-PCS; 2020-02-07)
PROC: 30233N1 Transfusion of Nonautologous Red Blood Cells into Peripheral Vein, Percutaneous Approach (ICD-10-PCS; 2020-02-07)
PROC: 0DBL0ZZ Excision of Transverse Colon, Open Approach (ICD-10-PCS; principal; 2020-02-07 07:30)
DX: C18.4 Malignant neoplasm of transverse colon (principal); J18.9 Pneumonia, unspecified organism; J95.89 Other postprocedural complications and disorders of respiratory system, not elsewhere classified; N39.0 Urinary tract infection, site not specified; Z85.038 Personal history of other malignant neoplasm of large intestine; Y83.8 Other surgical procedures as the cause of abnormal reaction of the patient, or of later complication, without mention of misadventure at the time of the procedure; Y82.8 Other medical devices associated with adverse incidents; I10 Essential (primary) hypertension
CPT/HCPCS: 36415; 71045; 80048; 80053; 81000-TC; 82962; 83735-TC; 84100-TC; 84478-TC; 85018-TC; 85025; 86886; 86900; 86901; 86920; 87040-TC; 87081; 87086; 87186-TC; 88305; 88307; 97110-GP; 97116-GP; 97530-GP; C9290; J0610; J0692; J0694; J1170; J1450; J1650; J1815; J2250; J2370; J2405; J2704; J2765; J3010; J3475; J3480; J3490; J7030; J7042; J7050; J7060; J7120; J7131; P9021

== ENCOUNTER 2023-10-11 10:34 | Emergency (ER) | payer BC, OTHER ==
[~2023-10-11] VITALS: Ht 152.4 cm; Wt 55.3 kg
[~2023-10-11 10:34] MED LIST changes: +LEVO-62 PO; +LOSA-415 PO; -LOSA100T3 PO
[2023-10-11 10:38] VITALS: BP_SYST 135; PULSE 73; RESP 18; TEMP 98.3; O2SAT 97
[2023-10-11 11:54] LABS: BASOPHILS # (AUTO) 0.1 K/uL (0.0-0.2); EOSINOPHILS # (AUTO) 0.1 K/uL (0.0-0.4); HEMATOCRIT 38.7 % (36-48); HEMOGLOBIN 12.5 g/dL (12.0-16.0); LYMPHOCYTES # (AUTO) 1.7 K/uL (1.0-5.5); LYMPHOCYTES % (AUTO) 28.2 % (20.5-51.5); MEAN CORPUSCULAR HEMOGLOBIN 29 pg (27-31); MEAN CORPUSCULAR HGB CONC 32 % (32-36); MEAN CORPUSCULAR VOLUME 90 fL (79.0-98.0); MONOCYTES # (AUTO) 0.4 K/uL (0.0-1.0); MONOCYTES % (AUTO) 6.9 % (1.7-9.3); NEUTROPHILS # (AUTO) 3.7 K/uL (1.8-7.7); NEUTROPHILS % (AUTO) 61.9 % (40.0-70.0); PLATELET COUNT (AUTO) 185 K/uL (130-430); RED BLOOD CELL COUNT(AUTO) 4.29 MIL/uL (4.2-6.2); RED CELL DISTRIBUTION WIDTH 14.1 % (9.0-15.0)
[2023-10-11] MEDS ORDERED: KETOROLAC TROMETHAMINE 30 MG VIAL IM ONE (12:00)
[2023-10-11] MEDS ORDERED: ACETAMINOPHEN 500 MG TABLET PO ONE (12:00)
[2023-10-11 12:01] LABS: ANION GAP 6 (5-15); CALCIUM 9.1 mg/dL (8.4-11.0); CARBON DIOXIDE 27 mmol/L (23-29); CHLORIDE 106 mmol/L (98-107); CREATININE 0.88 mg/dL (0.55-1.30); GLUCOSE 100 mg/dL (74-106); POTASSIUM 3.9 mmol/L (3.5-5.1); SODIUM SERUM 139 mmol/L (136-145); UREA NITROGEN, BLOOD 21 mg/dL (8-21)
[2023-10-11 12:08] LABS: ALANINE AMINOTRANSFERASE 27 U/L (12-78); ALBUMIN 3.7 g/dL (3.4-4.8); ASPARTATE AMINOTRANSFERASE 17 U/L (10-37); TOTAL BILIRUBIN 0.3 mg/dL (0.0-1.0); TOTAL PROTEIN, SERUM 7.1 g/dL (6.4-8.3)
[2023-10-11 13:43] VITALS: BP_SYST 135; PULSE 73; RESP 18; TEMP 98.3; O2SAT 97
== END 2023-10-11 10:40 | disposition home or self-care (01) ==
LOC: SED 10:34
DX: S29.011A Strain of muscle and tendon of front wall of thorax, initial encounter (principal); Z88.8 Allergy status to other drugs, medicaments and biological substances; Z79.899 Other long term (current) drug therapy; X58.XXXA Exposure to other specified factors, initial encounter; Y93.89 Activity, other specified; Y92.89 Other specified places as the place of occurrence of the external cause; Y99.8 Other external cause status
CPT/HCPCS: 36415; 71046-TC; 71100; 80053; 84484; 85025; 93005; 99283